=== PATIENT | female | born 1970 | race Caucasian/White ===

== ENCOUNTER 2017-07-19 16:31 | Emergency (ER) | payer BC, OTHER ==
[2017-07-19 16:37] VITALS: BP 153/77; PULSE 69; RESP 18; TEMP 97.7
--- NOTE | 2017-07-19 17:08 | XR ---
EXAMINATION TYPE: XR elbow complete LT DATE OF EXAM: 07/19/2017 CLINICAL HISTORY: pain TECHNIQUE: Frontal, lateral and oblique images of the left elbow are obtained. COMPARISON: None. FINDINGS: Irregularity of the radial head suggested on one image. Prominent anterior and posterior fa t pads. IMPRESSION: Suspected nondisplaced fracture radial head. Correlate clinically. ICD 10 closed FRACTURE, INITIAL EVALUATION
--- NOTE | 2017-07-19 17:26 | ED ---
Upper Extremity HPI - General Chief Complaint: Extremity Injury, Upper Stated Complaint: Fell/arm injury Time Seen by Provider: 07/19/17 16:39 Source: patient Mode of arrival: ambulatory Limitations: no limitations - History of Present Illness Initial Comments: This is a 46-year-old female who presents to the emergency department for left elbow pain. She fell out of her chair and landed on her left hand. She states initially she had pain in her wrist but then noticed that it was actually in her elbow. She states it's worse with supination and pronation of her hand. She denies any numbness, [place], or weakness. No other injuries noted. - Related Data Home Medications Medication Instructions Recorded Confirmed Cholecalciferol [Vitamin D3] 1,000 unit PO HS 07/19/17 07/19/17 Minocycline HCl 100 mg PO DAILY 07/19/17 07/19/17 Vit C/E/Zn/Coppr/Lutein/Zeaxan 1 cap PO DAILY 07/19/17 07/19/17 [Preservision Areds 2 Softgel] Previous Rx's Medication Instructions Recorded HYDROcodone/APAP 5-325MG [[place] 1 tab PO Q4HR PRN #15 tab 07/19/17 5-325] Allergies Allergy/AdvReac Type Severity Reaction Status Date / Time No Known Allergies Allergy Verified 07/19/17 16:41 Review of Systems ROS Statement: Those systems with pertinent positive or pertinent negative responses have been documented in the HPI. ROS Other: All systems not noted in ROS Statement are negative. Past Medical History Past Medical History: Hyperlipidemia History of Any Multi-Drug Resistant Organisms: None Reported Past Surgical History: Section, Cholecystectomy Past Psychological History: No Psychological Hx Reported Smoking Status: Never smoker Past Alcohol Use History: None Reported Past Drug Use History: None Reported General Exam - General Exam Comments Initial Comments: Constitutional: Awake alert Appears comfortable Head: Normocephalic atraumatic Eyes: no conjunctival injection No scleral icterus EOMI Neck: No JVD Supple Heart: Regular rate rhythm normal S1-S2 no murmurs Lungs: Clear to auscultation bilaterally No wheezing No rales Abdomen: Soft nondistended nontender Extremities: Non edematous DP pulses intact Radial pulses intact, there is mild tenderness to palpation of the lateral aspect of the left elbow. She has full range motion of the left elbow. Neurovascularly intact distally. Neuro: A&Ox3 No focal neurologic deficits Psych: Appropriate mood and affect Limitations: no limitations Course Vital Signs 07/19/17 16:34 Temperature 97.7 F Pulse Rate 69 Respiratory 18 Rate Blood Pressure 153/77 O2 Sat by Pulse 100 Oximetry Procedures - Orthopedic Splinting/Casting Injury #1 Side: left Upper Extremity Injury Location: elbow Upper Extremity Immobilizer: sling/shoulder immobilizer, posterior splint Medical Decision Making - Medical Decision Making Is a 46-year-old female presents emergency department for left elbow pain. X- ray confirmed a proximal radial head fracture. Patient was immobilized with a posterior splint and given a sling. She was given Dr. Palm for orthopedic follow-up and also [place] that she can use as needed for pain. Patient was instructed to follow-up with Dr. Palm. She had any worsening or changing symptoms she can return. Disposition Clinical Impression: Radial head fracture Disposition: HOME SELF-CARE Condition: Stable Instructions: Elbow Fracture in Adults (ED) Prescriptions: HYDROcodone/APAP 5-325MG [[place] 5-325] 1 tab PO Q4HR PRN #15 tab PRN Reason: Pain Referrals: Jim Pedro MD [Primary Care Provider] - 1-2 days Greg Palm MD [STAFF PHYSICIAN] - 1-2 days
--- NOTE | 2017-07-21 05:58 | CDI ---
Documentation Clarification OP Dear Dr. Romulo Villalta Please do addendum to ED report for missing type of splint Thank you, Libra Nguyễn Pastry Cook If you have any questions, please contact [employer]ating [employer]er at [phone] [facility]
== END 2017-07-19 17:30 | disposition home or self-care (01) ==
LOC: EC 16:31
DX: S52.122A Displaced fracture of head of left radius, initial encounter for closed fracture (principal); W07.XXXA Fall from chair, initial encounter; Z79.899 Other long term (current) drug therapy
CPT/HCPCS: 29105; 99283

== ENCOUNTER → 2017-09-27 | Outpatient (CLI) | payer BC ==
--- NOTE | 2017-09-28 07:15 | US ---
EXAMINATION TYPE: US transvaginal DATE OF EXAM: 09/27/2017 COMPARISON: NONE CLINICAL HISTORY: Menorragia N92.1. Irregular cycles, 1 , h/o ovarian cysts TECHNIQUE: TV Date of LMP: 08/23/17 EXAM MEASUREMENTS: Uterus: 7.4 x 5.4 x 4.9 cm Endometrial Stripe: 0.4 cm Right Ovary: 2.9 x 2.4 x 2.4 cm Left Ovary: 2.0 x 1.8 x 1.5 cm 1. Uterus: Retroverted nabothian cysts seen 2. Endometrium: wnl 3. Right Ovary: multiple follicles seen, largest = 1.1cm, some follicles had internal debris or shira d components to them 4. Left Ovary: follicle seen measuring 1.3cm 5. Bilateral Adnexa: wnl 6. Posterior cul-de-sac: wnl IMPRESSION: Multiple crenulated appearing bilateral ovarian follicles and may represent involuting cy sts. Otherwise unremarkable pelvic ultrasound with normal endometrial thickness.
== END | disposition home or self-care (01) ==
LOC: RADUSWWP 16:51
PROVIDERS: ATTEND Obstetrics & Gynecology
DX: N92.1 Excessive and frequent menstruation with irregular cycle (principal)
CPT/HCPCS: 76830

== ENCOUNTER → 2017-10-11 | Outpatient (CLI) | payer BC ==
--- NOTE | 2017-10-11 11:29 | MM ---
Reason for exam: screening (asymptomatic). Last mammogram was performed 1 year ago. History: Benign left breast aspiration of the left breast, April 12, 2012. Took hormonal contraceptives for 9 years beginning at age 17. Physical Findings: A clinical breast exam by your physician is recommended on an annual basis and results should be correlated with mammographic findings. MG Screening Mammo w CAD Bilateral CC and MLO view(s) were taken. XCCL view(s) were taken of the left breast. Prior study comparison: October 10, 2016, bilateral MG screening mammo w CAD. October 07, 2015, bilateral MG screening mammo implant/CAD. The breast tissue is heterogeneously dense. This may lower the sensitivity of mammography. There is no discrete abnormality. ASSESSMENT: Negative, BI-RAD 1 RECOMMENDATION: Routine screening mammogram of both breasts in 1 year.
== END | disposition home or self-care (01) ==
LOC: RADMAMWWP 09:42
PROVIDERS: ATTEND Obstetrics & Gynecology
DX: Z12.31 Encounter for screening mammogram for malignant neoplasm of breast (principal)

== ENCOUNTER → 2018-10-15 | Outpatient (CLI) | payer BC ==
--- NOTE | 2018-10-16 11:57 | MM ---
Reason for exam: screening (asymptomatic). Last mammogram was performed 1 year ago. History: Benign left breast aspiration of the left breast, April 12, 2012. Took hormonal contraceptives for 9 years beginning at age 17. Physical Findings: A clinical breast exam by your physician is recommended on an annual basis and results should be correlated with mammographic findings. MG Screening Mammo w CAD Bilateral CC and MLO view(s) were taken. Prior study comparison: October 11, 2017, bilateral MG screening mammo w CAD. October 10, 2016, bilateral MG screening mammo w CAD. The breast tissue is heterogeneously dense. This may lower the sensitivity of mammography. Focal asymmetry upper outer right breast anterior third position. This finding is changed when compared with previous exams. ASSESSMENT: Incomplete: need additional imaging evaluation, BI-RAD 0 RECOMMENDATION: Special view mammogram of the right breast. If lesion persists on supplemental views, image directed ultrasound is recommended. [facility] will attempt to contact patient to return for supplemental views and ultrasound if indicated.
== END | disposition home or self-care (01) ==
LOC: RADMAMWWP 07:26
PROVIDERS: ATTEND Obstetrics & Gynecology
DX: Z12.31 Encounter for screening mammogram for malignant neoplasm of breast (principal)
CPT/HCPCS: 77067

== ENCOUNTER → 2018-11-01 | Outpatient (CLI) | payer BC ==
--- NOTE | 2018-11-01 14:01 | MM ---
Reason for exam: additional evaluation requested from abnormal screening. Last mammogram was performed 1 month ago. History: Benign left breast aspiration of the left breast, April 12, 2012. Took hormonal contraceptives for 9 years beginning at age 17. Physical Findings: Nurse Summary: 1 x 1cm nodule in the right breast at 11 o'clock (nurse ts). MG Work Up Mamm w CAD RT Spot compression CC, spot compression MLO, and ML view(s) were taken of the right breast. Prior study comparison: October 15, 2018, bilateral MG screening mammo w CAD. October 11, 2017, bilateral MG screening mammo w CAD. There is no discrete abnormality including area of concern. These results were verbally communicated with the patient and result sheet given to the patient on 11/01/18. ASSESSMENT: Incomplete: need additional imaging evaluation, BI-RAD 0 RECOMMENDATION: Ultrasound of the right breast. (palpable) Manage patient on a clinical basis.
--- NOTE | 2018-11-01 14:02 | USB ---
Reason for exam: additional evaluation requested from abnormal screening. History: Benign left breast aspiration of the left breast, April 12, 2012. Took hormonal contraceptives for 9 years beginning at age 17. US Breast Workup Limited RT Right limited breast ultrasound including focal area of concern, retroareolar and axilla demonstrates a 0.3 x 0.2 x 0.4cm lesion too small to characterize at 10 o'clock and a 0.5 x 0.2 x 0.4cm lesion too small to characterize at 11 o'clock. These results were verbally communicated with the patient and result sheet given to the patient on 11/01/18. ASSESSMENT: Probably benign, BI-RAD 3 RECOMMENDATION: Ultrasound of the right breast in 6 months. Manage patient on a clinical basis.
== END | disposition home or self-care (01) ==
LOC: RADMAMWWP 07:01
PROVIDERS: ATTEND Obstetrics & Gynecology
DX: R92.8 Other abnormal and inconclusive findings on diagnostic imaging of breast (principal)
CPT/HCPCS: 77065

== ENCOUNTER → 2019-05-03 | Outpatient (CLI) | payer BC ==
--- NOTE | 2019-05-06 12:07 | USB ---
Reason for exam: clinical finding. History: Benign left breast aspiration of the left breast, April 12, 2012. Took hormonal contraceptives for 9 years beginning at age 17. Indicated problem(s): palpable abnormality and lump or thickening in the right breast. Physical Findings: Nurse Summary: 1.5cm firm nodule (nurse dw). US Breast RT Right complete breast ultrasound includes all four quadrants, the retroareolar region and axilla. Finding demonstrates a 0.7 x 1.2 x 1.3cm irregular, solid, vascular lesion at 11 o'clock. These results were verbally communicated with the patient and result sheet given to the patient on 05/03/19. ASSESSMENT: Highly suggestive of malignancy, BI-RAD 5 RECOMMENDATION: Ultrasound core biopsy of the right breast. Called Dr. Velez with mammographic findings and has scheduled an appointment for the patient for 06/06/19 at 11:[address] Reaves. Biopsy scheduled for 05/27/19 at 8:00. PRELIMINARY REPORT CALLED AND FAXED TO DR. REAVES ON 05/06/19.
== END | disposition home or self-care (01) ==
LOC: RADUSWWP 06:53
PROVIDERS: ATTEND Obstetrics & Gynecology
DX: R92.8 Other abnormal and inconclusive findings on diagnostic imaging of breast (principal)

== ENCOUNTER → 2019-05-23 | Day surgery (SDC) | payer BC ==
[2019-05-23 11:50] VITALS: TEMP 98; BMI 29.7
--- NOTE | 2019-05-23 13:21 | USB ---
EXAMINATION TYPE: US biopsy breast VAD RT, MG diagnostic mammo RT wo CAD DATE OF EXAM: 05/23/2019 CLINICAL HISTORY: R92.8 ABN MAMMO. TECHNIQUE: Ultrasound guided core biopsy of right breast. COMPARISON: Right breast ultrasound dated 05/03/2019 FINDINGS: The procedure of ultrasound guided core biopsy was explained to the patient. Benefits, alt ernatives, and risks were discussed. An informed consent was then obtained. Preprocedural timeout w as performed. The patient was placed in supine positioning for imaging and for the procedure. The overlying skin w as prepped and draped in usual sterile fashion. Lidocaine buffered with bicarbonate was used as anes thetic into the skin and subcutaneous tissue up to the highly suspicious 0.7 x 1.2 x 1.3 cm irregular mass within the right breast at the 11:00 position in zone BC. Under ultrasound guidance, a 12-gauge vacuum assisted biopsy gun device was used to obtain 9 core jenae ples on various aspect of this mass. Following this, a coil-shaped biopsy marker was left in mass. Postprocedural mammogram demonstrates appropriate biopsy marker placement. The patient tolerated the procedure well without any immediate complication. The patient was kept in the radiology department for short stay after the procedure and then discharged home in stable condi tion. IMPRESSION: Successful, uncomplicated ultrasound guided core biopsy of the highly suspicious 0.7 x 1. 2 x 1.3 cm irregular mass within the right breast at the 11:00 position in zone BC, full pathology re sults to follow.
[2019-05-23 14:44] VITALS: BP 107/69; PULSE 73; RESP 16
== END ==
LOC: RADUSWWP 11:14
PROVIDERS: ATTEND Surgery
DX: C50.411 Malignant neoplasm of upper-outer quadrant of right female breast (principal)
CPT/HCPCS: 19083; 88305; 77065; A4648; J2001; 88341; 88342

== ENCOUNTER 2019-07-17 07:28 | Day surgery (SDC) | payer BC ==
[2019-07-05 13:23] VITALS: BMI 27.8
--- NOTE | 2019-07-16 19:36 | P.GSHP ---
History of Present Illness H&P Date: 07/16/19 Chief Complaint: Right breast cancer 48-year-old female underwent recent right breast 6 month follow-up ultrasound. Recently identified lesion increased in size now to 1.3 cm. Patient has no family history of breast cancer. She is otherwise asymptomatic. Core Biopsy Obtained Which Reveals Invasive Ductal Carcinoma. Follow-Up to Be At Least Moderately Differentiated. ER CT Positive HER-2/esvin Negative. Patient Was Sent for Genetic Screening and Genetic Screening have Been Negative. Past Medical History Past Medical History: Hyperlipidemia, Skin Disorder History of Any Multi-Drug Resistant Organisms: None Reported Past Surgical History: Section, Cholecystectomy Past Anesthesia/Blood Transfusion Reactions: No Reported Reaction Smoking Status: Never smoker - Past Family History Father Family Medical History: Cancer, Hyperlipidemia, Hypertension Medications and Allergies Home Medications Medication Instructions Recorded Confirmed Type Cholecalciferol [Vitamin D3] 7,000 unit PO DAILY 07/19/17 07/05/19 History Minocycline HCl [Minocin] 100 mg PO DAILY PRN 07/19/17 07/05/19 History Vit C/E/Zn/Coppr/Lutein/Zeaxan 1 cap PO DAILY 07/19/17 07/05/19 History [Preservision Areds 2 Softgel] Allergies Allergy/AdvReac Type Severity Reaction Status Date / Time shellfish derived [Shellfish] Allergy Itching Verified 07/05/19 13:17 Surgical - Exam Physical exam: General: Well-developed, well-nourished HEENT: Normocephalic, sclerae nonicteric Left breast: No masses, no adenopathy Right breast: No masses, no adenopathy, recent scar noted Abdomen: Nontender, nondistended Extremities: No edema Neuro: Alert and oriented Assessment and Plan (1) Breast cancer, right Narrative/Plan: 48-year-old female with recently diagnosed right breast invasive ductal cancer. Options reviewed in detail with the patient. She is interested in breast conservation. Patient scheduled for right breast lumpectomy with wire localization, sentinel lymph node biopsy/injection with possible axillary node dissection tomorrow. Risks of bleeding, infection, possible need for additional surgery, scarring, numbness, chronic pain, seroma, nerve injury reviewed. She understands and wishes to proceed. Status: Acute Code(s): C50.911 - MALIGNANT NEOPLASM OF UNSP SITE OF RIGHT FEMALE BREAST SNOMED Code(s): 964287459
[~2019-07-17 07:28] MED LIST: DEXAMETHASONE SOD PHOSPHATE 10 MG/ML 1 ML VIAL IV ONE; HEPARIN SODIUM,PORCINE 5,000 UNIT/ML 1 ML VIAL SQ ONE; HYDROmorphone 0.5 MG/0.5 ML SYRINGE IVP PRN; LACTATED RINGERS 1,000 ML IV SCH; MIDAZOLAM 2 MG/2 ML VIAL IV PRN; ONDANSETRON 4 MG/2 ML VIAL IVP ONE; Pre Op ABX Message 1 EACH MISC MISCELLANE ONE; SCOPOLAMINE 1.5MG/72HR PATCH TRANSDERM ONE
[2019-07-17] MEDS ORDERED: ALPRAZolam 0.5 MG TAB PO ONE (07:55)
[2019-07-17] MEDS ORDERED: LIDOCAINE 1% INJ 10MG/ML (20 ML MDV) SQ ONE (08:52)
[2019-07-17] MEDS ORDERED: SUCCINYLCHOLINE CHLORIDE 100 MG/5 ML SYR IV ONE (09:41)
[2019-07-17] MEDS ORDERED: DEXAMETHASONE SOD PHOS (MDV) 100 MG/10 ML VIAL ONE (09:41)
[2019-07-17] MEDS ORDERED: LIDOCAINE 1% INJ 10MG/ML (20 ML MDV) ONE (09:41)
[2019-07-17] MEDS ORDERED: MIDAZOLAM 2 MG/2 ML VIAL ONE (09:41)
[2019-07-17] MEDS ORDERED: ceFAZolin 1,000 MG VIAL ONE (09:41)
[2019-07-17] MEDS ORDERED: KETOROLAC 30 MG/ML 1 ML VIAL ONE (09:41)
[2019-07-17] MEDS ORDERED: ONDANSETRON 4 MG/2 ML VIAL ONE (09:41)
[2019-07-17] MEDS ORDERED: HEPARIN SODIUM,PORCINE 5,000 UNIT/ML 1 ML VIAL ONE (09:41)
[2019-07-17] MEDS ORDERED: fentaNYL (PF) 50 MCG/ML 2 ML AMP ONE (09:41)
[2019-07-17] MEDS ORDERED: PROPOFOL 10 MG/ML 20 ML VIAL IV ONE (09:41)
[2019-07-17] MEDS ORDERED: HYDROmorphone (PF) 1 MG/ML ONE (09:41)
--- NOTE | 2019-07-17 09:55 | NM ---
EXAMINATION TYPE: NM sentinel node injection DATE OF EXAM: 07/17/2019 COMPARISON: 05/23/2019 right breast biopsy HISTORY: Right breast cancer with request for sentinel lymph node injection. TECHNIQUE AND FINDINGS: The procedure of sentinel lymph node injection was explained to the patient. The benefits, alternatives, and risks were discussed. An informed consent was then obtained. Overlying skin is cleaned with sterile alcohol. Following this, 522 uCi Tc99m Tilmanocept was inject ed in the upper outer aspect of the right nipple intradermally. The patient tolerated the procedure well without any immediate complication. The patient was kept in the radiology department for short stay after the procedure and then taken to surgery for surgical p rocedure what is presumed intraoperative gamma probe will be used for sentinel lymph node detection. IMPRESSION: Right breast radiotracer injection for sentinel node localization as above.
[2019-07-17] MEDS ORDERED: BUPIVACAIN-EPI 0.25%-1:200,000 30 ML VIAL SQ ONE ×2 (10:06)
[2019-07-17] MEDS ORDERED: SODIUM CHLORIDE 0.9% 100 ML with ceFAZolin 2,000 MG IV ONE ×2 (10:11)
[2019-07-17] MEDS ORDERED: LACTATED RINGERS 1,000 ML IV ONE ×2 (10:33)
[2019-07-17] MEDS ORDERED: HYDROcodone/APAP 5-325MG 1 EACH TAB PO PRN (11:27)
[2019-07-17] MEDS ORDERED: NALOXONE 0.4 MG/ML 1 ML VIAL IV PRN (11:27)
--- NOTE | 2019-07-17 11:29 | MM ---
EXAMINATION TYPE: MG pre op needle loc RT, MG surgical specimen RT DATE OF EXAM: 07/17/2019 COMPARISON: Right breast biopsy dated 05/23/2019 CLINICAL HISTORY: Right breast cancer for which mammographic guided needle localization was requested. TECHNIQUE: Needle localization with wire placement and surgical excision of area of concern in the right breast. FINDINGS: The procedure of needle localization with wire placement and than surgical excision was explained to the patient. Benefits, alternatives, and risks were discussed. An informed consent was then obtained. Preprocedural timeout was performed. The shortest pathway for procedure was chosen. Shortest pathway was lateral to medial approach. The overlying skin was prepped and draped in usual sterile fashion. Lidocaine buffered with bicarbonate was used as anesthetic into the skin and subcutaneous tissue up to the level of area of concern. A 5 cm needle was used. It was placed via a lateral to medial approach under mammographic guidance. Subsequent 90 degrees mammogram show the needle to be in satisfactory position relative to the targeted area. At this point, wire was placed and the needle was withdrawn. The wire was fixed to patient's skin. Images were marked for surgeon. The patient tolerated the procedure well without any immediate complication. The patient was kept in the radiology department for short stay after the procedure and then taken to surgery for surgical excision. Targeted biopsy marker and wire are identified in specimen mammogram. The patient was kept in hospital for short stay after the procedure and then discharged home in stable condition. Findings were relayed to the OR by the traffic safety administrator Kiana at 11:27 AM on 07/17/2019. IMPRESSION: Successful, uncomplicated needle localization with wire placement and surgical excision of a coil-shaped biopsy marker representing the biopsy- proven invasive ductal carcinoma measuring 1.2 cm at the 11:00 position in the right breast, full pathology results to follow. Pathology Results: Malignant A. RIGHT SENTINEL LYMPH NODE #1, BIOPSY: Benign lymph node, partial fatty replacement. An appropriately controlled immunohistochemical study for LEEANNA and Cytokeratin 7 is negative, thus confirming the absence of micrometastatic adenocarcinoma within these nodes. B. RIGHT AXILLARY SENTINEL LYMPH NODE #2, BIOPSY: Nodular adipose tissue, negative for lymphoid tissue or metastatic adenocarcinoma. C. RIGHT AXILLARY SENTINEL LYMPH NODE #3, BIOPSY: Fibroadipose and vascular tissue, negative for lymph node or metastatic adenocarcinoma. D. RIGHT BREAST LESION AT THE ELEVEN O'CLOCK POSITION IN ZONE B/C, NEEDLE LOCALIZATION BIOPSY: 14 x 13 x 7 mm infiltrating, moderately differentiated (grade 2) adenocarcinoma greater than 2 mm away from inked margins of resection. 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 See Surgical Pathology Cancer Case Summary. Recommendation Appropriate oncologic management. MTDD
--- NOTE | 2019-07-17 11:31 | P.OP ---
Date of Procedure: 07/17/19 Procedure(s) Performed: REOPERATIVE DIAGNOSIS: Right breast cancer POSTOPERATIVE DIAGNOSIS: Same PROCEDURE: Right Breast wire localization lumpectomy with sentinel lymph node biopsy SURGEON: Jean Paul EBL: Minimal ANESTHESIA: General COMPLICATIONS: None OPERATIVE PROCEDURE: Patient was placed on the operating room table in the supine position. 2 mL of methylene blue was injected into the subareolar space. The breast was then massaged for 5 minutes. The breast was prepped and draped in usual sterile fashion. The right axilla was addressed at that time. The hot spot in the right axilla was identified. A small curvilinear incision was made using the scalpel. Dissection down through the subcutaneous tissues took place using electrocautery. Using the neoprobe I identified a total of 3 sentinel lymph nodes. The first of these was blue in color. The second sentinel lymph node appeared to be quite small. The third sentinel lymph node had radioactive material but I was not able to identify a definite node. None of these appeared clinically suspicious. No frozen section took place. The operative site was irrigated with saline. No bleeding was seen. The subcutaneous tissues were closed using 3-0 Vicryl sutures. The skin was closed using 4-0 Monocryl sutures. The wire entrance site was then addressed. This was present at the 9:00 location. A curvilinear incision was made adjacent to the wire entrance site. I followed the wire down into the breast tissue. An adequate lumpectomy specimen then took place around the wire. Margins of 1.5-2 cm worth attempted to be achieved. Palpation of the specimen did not reveal any suspicious nodularity. No additional margins were taken. The specimen was then painted the appropriate 6 colors. Clips were used to identify the lumpectomy cavity. The clip was confirmed to be within the lumpectomy specimen by radiology. The subcutaneous tissues were closed using 3-0 Vicryl sutures. The skin was closed using a running 4-0 Monocryl stitch. Skin glue was then applied. DISPOSITION: Stable to recovery room
[2019-07-17 11:47] VITALS: TEMP 97.2
[2019-07-17 12:33] VITALS: RESP 18
[2019-07-17] MEDS ORDERED: HYDROcodone/APAP 5-325MG 1 EACH TAB PO ONE (12:38)
[2019-07-17 13:06] VITALS: BP 131/86; PULSE 77
--- NOTE | 2019-07-23 07:57 | CDI ---
Pt Name: Julia Howard CONFIDENTIAL MR#: [id number] Adm Date: 07/17/2019 7:28:00 AM Printed:07/23/2019 Physician Documentation Request Page 1 of 2 ICD-10-CM Ready Physicians Documentation Request Patient: Julia Howard EPI: [id number] Account: [id number] Payer: [facility] Facility: [facility] Location: - Admit Date: 07/17/2019 7:28:00 AM Query Send By: Angela Bauer Phone #: Ext. Communication Date: Clarification @@@visittype@@@ By submitting this query, we are merely seeking further clarification of documentation to accurately reflect all conditions that you are monitoring, evaluating, treating or that extend the hospitalization or utilize additional resources of care. Please utilize your independent clinical judgment when addressing the question(s) below. Dear Doctor Perico Reaves, The patients Clinical Indicators include: see below Documentation Clarification OP As per your Operative note documentation Right Breast wire localization lumpectomy with sentinel lymphnode biopsy. Please clarify the location of lump. Since in the pathology report it was specified as Eleven O'Clock position but not stated the quadrent specifically. 1. Tumor at Upper -outer quadrant 2. Unspecied site Thank you for your kind consideration. PLEASE DOCUMENT ANY ADDITIONAL DIAGNOSES AND/OR SPECIFICITY IN THE PROGRESS NOTES AND/OR DISCHARGE SUMMARY. Agreed & documented Unable to determine/unknown Disagree with the above request Need to discuss MTDD
== END 2019-07-17 13:49 | disposition home or self-care (01) ==
LOC: OR 07:28
PROVIDERS: ATTEND Surgery
DX: C50.411 Malignant neoplasm of upper-outer quadrant of right female breast (principal); E78.5 Hyperlipidemia, unspecified; Z91.013 Allergy to seafood; Z90.49 Acquired absence of other specified parts of digestive tract; Z87.2 Personal history of diseases of the skin and subcutaneous tissue; Z82.49 Family history of ischemic heart disease and other diseases of the circulatory system; Z80.9 Family history of malignant neoplasm, unspecified; Z83.438 Family history of other disorder of lipoprotein metabolism and other lipidemia; Z17.0 Estrogen receptor positive status [ER+]
CPT/HCPCS: 19301; 38500; 81025; 88342; 88307; 88341; 76098; 19281; 38792; A9520; J2250; J1644; J2405; J0690; J2001; J3010; J1885; J1170; J1100; J0330; J2704

== ENCOUNTER → 2019-10-23 | Outpatient (CLI) | payer BC ==
--- NOTE | 2019-10-23 09:11 | MM ---
Reason for exam: follow-up at short interval from prior study. Last mammogram was performed 5 months ago. History: Patient has history of breast cancer at age 48. Malignant MG pre op needle loc RT of the right breast, July 17, 2019. Lumpectomy of the right breast, July 17, 2019. Malignant US biopsy breast VAD RT of the right breast, May 23, 2019. Benign left breast aspiration of the left breast, April 12, 2012. Took hormonal contraceptives for 9 years beginning at age 17. Physical Findings: Nurse did not find any significant physical abnormalities on exam. MG 3D Diag Mammo W/Cad ANNEL Bilateral CC and MLO view(s) were taken. Prior study comparison: May 23, 2019, right breast MG diagnostic mammo RT wo CAD. November 01, 2018, right breast MG work up mamm w CAD RT. The breast tissue is heterogeneously dense. This may lower the sensitivity of mammography. There are scattered left calcifications. No suspicious abnormality. Post operative/post therapy change on the right. These results were verbally communicated with the patient and result sheet given to the patient on 10/23/19. ASSESSMENT: Benign, BI-RAD 2 RECOMMENDATION: Follow-up diagnostic mammogram of both breasts in 1 year.
== END | disposition home or self-care (01) ==
LOC: RADMAMWWP 07:05
PROVIDERS: ATTEND Surgery
DX: R92.8 Other abnormal and inconclusive findings on diagnostic imaging of breast (principal); Z85.3 Personal history of malignant neoplasm of breast
CPT/HCPCS: 77062; 77066

== ENCOUNTER → 2020-09-09 | Outpatient (CLI) | payer BC, OTHER ==
--- NOTE | 2020-09-09 14:51 | BD ---
EXAMINATION TYPE: Axial Bone Density DATE OF EXAM: 09/09/2020 COMPARISON: NONE CLINICAL HISTORY: Height: 63.5 Weight: 158.2 FRAX RISK QUESTIONS: Alcohol (3 or more units per day): no Family History (Parent hip fracture): no Glucocorticoids (More than 3mos): no (Ex: prednisone, prednisolone, methylprednisolone, dexamethasone, and hydrocortisone). History of Fracture in Adulthood: yes Secondary Osteoporosis: 1. Type 1 Diabetes: no 2. Hyperthyroidism: no 3. Menopause before 45: no 4. Malnutrition: no 5. Chronic liver disease: no Rheumatoid Arthritis: no Current Tobacco Use: no RISK FACTORS HISTORY OF: Family History of Osteoporosis: yes Active: yes Diet low in dairy products/other sources of calcium: no Postmenopausal woman: age 49 Lost more than 2 inches in height since high school: no MEDICATIONS: pepcid, tomoxifin Additional History: EXAM MEASUREMENTS: Bone mineral densitometry was performed using the Future Simple System. Bone mineral density as measured about the Lumbar spine is: ----- L1-L4(G/cm2): 1.532 T Score Values are as follows: ----- L2: 2.2 ----- L3: 4.0 ----- L4: 3.7 ----- L1-L4: 2.9 Bone mineral density : baseline Bone mineral density about the R hip (g/cm2): 1.045 Bone mineral density about the L hip (g/cm2): 1.056 T Score values are as follows: -----R Neck: 0.0 -----L Neck: 0.1 -----R Total: 0.6 -----L Total: 0.8 Bone mineral density : baseline IMPRESSION: Normal (Values between +1 and -1 indicate normal bone mass). Consider repeating this study in 5 year s or sooner if there is some new clinical indication. NOTE: T-SCORE=SD OF THE YOUNG ADULT MEAN.
== END | disposition home or self-care (01) ==
LOC: RADBDWWP 13:58
PROVIDERS: ATTEND Obstetrics & Gynecology
DX: N95.1 Menopausal and female climacteric states (principal)
CPT/HCPCS: 77080

== ENCOUNTER → 2020-12-01 | Outpatient (CLI) | payer BC, OTHER ==
--- NOTE | 2020-12-01 09:26 | MM ---
Reason for exam: additional evaluation requested from prior study. Last mammogram was performed 1 year and 1 month ago. History: Patient has history of breast cancer at age 48. Malignant MG pre op needle loc RT of the right breast, July 17, 2019. Lumpectomy of the right breast, July 17, 2019. Malignant US biopsy breast VAD RT of the right breast, May 23, 2019. Benign left breast aspiration of the left breast, April 12, 2012. Took hormonal contraceptives for 9 years beginning at age 17. Physical Findings: Nurse did not find any significant physical abnormalities on exam. MG 3D Diag Mammo W/Cad ANNEL Bilateral CC and MLO view(s) were taken. XCCL view(s) were taken of the right breast. Prior study comparison: October 23, 2019, bilateral MG 3d diag mammo w/cad ANNEL. May 23, 2019, right breast MG diagnostic mammo RT wo CAD. The breast tissue is heterogeneously dense. This may lower the sensitivity of mammography. No significant new findings when compared with previous films. These results were verbally communicated with the patient and result sheet given to the patient on 12/01/20. ASSESSMENT: Benign, BI-RAD 2 RECOMMENDATION: Follow-up diagnostic mammogram of both breasts in 1 year.
--- NOTE | 2020-12-01 12:29 | US ---
EXAMINATION TYPE: US transvaginal DATE OF EXAM: 12/01/2020 COMPARISON: US 2017 CLINICAL HISTORY: Z79.810 USE OF TAMOXIFEN. Patient on tamoxifen, 1, para 1, history of breas t CA, history of . TECHNIQUE: Transvaginal exam only per ordering physician. Date of LMP: 2019 EXAM MEASUREMENTS: Uterus: 7.7 x 3.7 x 5.2 cm Endometrial Stripe: 0.7 cm Right Ovary: not seen Left Ovary: 4.7 x 3.4 x 4.3 cm 1. Uterus: retroverted, heterogeneous 2. Endometrium: Not thickened, some focal areas of increased echogenicity are present 3. Right Ovary: not seen 4. Left Ovary: 2 cystic area with largest measuring 3.3 x 2.5 x 2.8cm, there are thin septations 5. Bilateral Adnexa: wnl 6. Posterior cul-de-sac: small amount of free fluid IMPRESSION: There may be some calcifications along the endometrium. There is a left ovarian cyst, florence e associated septations with increase in size as compared to prior ultrasound
== END | disposition home or self-care (01) ==
LOC: RADMAMWWP 07:30
PROVIDERS: ATTEND Obstetrics & Gynecology
DX: Z85.3 Personal history of malignant neoplasm of breast (principal); Z79.810 Long term (current) use of selective estrogen receptor modulators (SERMs); N83.202 Unspecified ovarian cyst, left side
CPT/HCPCS: 76830; 77062; 77066

== ENCOUNTER → 2020-12-15 | Outpatient (CLI) | payer BC, OTHER | END | disposition home or self-care (01) | LOC: LABWHC1 07:34 | PROVIDERS: ATTEND Obstetrics & Gynecology | DX: N83.209 Unspecified ovarian cyst, unspecified side (principal) | CPT/HCPCS: 36415; 86304 ==

== ENCOUNTER → 2021-01-11 | Outpatient (CLI) | payer BC, OTHER ==
--- NOTE | 2021-01-11 08:59 | US ---
EXAMINATION TYPE: US transvaginal DATE OF EXAM: 01/11/2021 COMPARISON: 12/01/2020 CLINICAL HISTORY: 50-year-old female N83.0 Left ovarian cyst, N83.209. TECHNIQUE: Transvaginal (TV). Date of LMP: November 2019 FINDINGS: EXAM MEASUREMENTS: Uterus: 9.0 x 5.7 x 6.5 cm Endometrial Stripe: 0.8 cm Right Ovary: 4.4 x 2.8 x 3.6 cm Left Ovary: 2.5 x 1.3 x 1.4 cm 1. Uterus: Anteverted. The myometrium is heterogeneous with a primarily intramural anterior fibroi d = 2.5cm. Nabothian cysts noted, largest has internal echoes measuring 1.1 x 1.4cm 2. Endometrium: echogenic foci noted. Measures 7 mm previously. 3. Right Ovary: cystic area = 4.2 x 2.1 x 3.0cm. The right ovary could not be visualized previously. 4. Left Ovary: Now appears unremarkable. The 2 previous cystic areas are no longer visualized, large st having measures 3.3 cm. 5. Bilateral Adnexa: Small amount of free fluid in the right adnexa. 6. Posterior cul-de-sac: appears wnl IMPRESSION: 1. Heterogeneous endometrium with punctate calcifications. This could represent sequela of prior infe ction or instrumentation. Endometrial stripe is borderline thickened for a postmenopausal female. If any postmenopausal bleeding occurs, further evaluation would be warranted. 2. Right ovary now visualized demonstrating a 4.2 cm simple cyst. Six-month follow-up ultrasound idania mmended to reassess. 3. The previous cysts within the left ovary are no longer visualized. The left ovary now appears unre markable. 4. Trace right adnexal free fluid. 5. A primarily intramural fibroid along the lower uterine segment measuring 2.5 cm.
== END ==
LOC: RADUSWWP 07:06
PROVIDERS: ATTEND Obstetrics & Gynecology
DX: N83.201 Unspecified ovarian cyst, right side (principal); D25.1 Intramural leiomyoma of uterus; N85.8 Other specified noninflammatory disorders of uterus; N83.8 Other noninflammatory disorders of ovary, fallopian tube and broad ligament
CPT/HCPCS: 76830; 86304

== ENCOUNTER → 2021-04-13 | Outpatient (CLI) | payer BC, OTHER ==
--- NOTE | 2021-04-13 14:06 | US ---
EXAMINATION TYPE: US transvaginal DATE OF EXAM: 04/13/2021 COMPARISON: us 01/11/2021 CLINICAL HISTORY: N83.20 PREV RT OVARIAN CYST. Patient taking Tamoxifen since 2019 TECHNIQUE Transvaginal sonographic images of the pelvis were acquired. Date of LMP: November 2019 EXAM MEASUREMENTS: Uterus: 7.4 x 5.0 x 4.6 cm Endometrial Stripe: 0.2 cm Right Ovary: 1.4 x 1.0 x 1.3 cm Left Ovary: 1.8 x 1.6 x 1.7 cm 1. Uterus: Retroverted Heterogeneous. Probable fibroid visualized measuring 1.2 x 1.2 x 1.4 cm. Nabo thian cysts visualized 2. Endometrium: wnl 3. Right Ovary: Cystic area measuring 1.0 x 0.5 x 0.9 cm compared to 4.2 x 2.1 x 3.0cm on 01/11/2021 4. Left Ovary: Follicle visualized measuring 1.0 cm 5. Bilateral Adnexa: wnl 6. Posterior cul-de-sac: wnl IMPRESSION: 1. 1 cm cystic structure in the right ovary. This is compared to prior exam of 4.2 cm cystic structur e. 2. 1 cm follicle within the left ovary. 3. Probable Nabothian cyst with probable hemorrhage. Direct cervical evaluation may be helpful.
== END | disposition home or self-care (01) ==
LOC: RADUSWWP 08:03
PROVIDERS: ATTEND Obstetrics & Gynecology
DX: N83.201 Unspecified ovarian cyst, right side (principal); N88.8 Other specified noninflammatory disorders of cervix uteri
CPT/HCPCS: 76830; 86304

== ENCOUNTER → 2022-04-18 | Outpatient (CLI) | payer OTHER, BC ==
--- NOTE | 2022-04-18 12:39 | US ---
EXAMINATION TYPE: US transvaginal DATE OF EXAM: 04/18/2022 COMPARISON: 04/13/2021 CLINICAL HISTORY: 51-year-old female Ovarian cyst N83.0, Z79.810 use of Tamoxifen. H/O ovarian cysts, pt on Tamoxifen since September of 2019 TECHNIQUE: Transvaginal sonographic images of the pelvis were acquired. Date of LMP: Nov 2019 FINDINGS: EXAM MEASUREMENTS: Uterus: 8.0 x 5.0 x 5.7 cm Endometrial Stripe: 1.4 cm Right Ovary: 2.6 x 1.4 x 2.6 cm Left Ovary: 6.8 x 2.8 x 3.7 cm 1. Uterus: Retroverted. The myometrium is heterogeneous with multiple Nabothian cysts in cervix as v isualized on prior. Some of these show internal echoes suggesting debris. Possible fundal fibroid mary suring 1.5 x 0.6 x 1.7 cm (versus 1.4 cm, previously) 2. Endometrium: Borders not well delineated, however tech felt endometrium to be thickened and heter ogeneous 3. Right Ovary: wnl 4. Left Ovary: Cyst= 4.6 x 2.7 x 4.7 cm and second cyst= 3.0 x 2.0 x 2.7 cm 5. Bilateral Adnexa: wnl 6. Posterior cul-de-sac: wnl IMPRESSION: 1. Retroverted and very heterogeneous uterus. The myometrial heterogeneity could reflect diffuse smal l fibroid change or adenomyosis. 2. The endometrial stripe is difficult to delineate. However, during real-time scanning, it appeared heterogeneous and thickened to the logistics team lead, estimated up to 1.4 cm. Findings may be secondary to tamoxifen induced endometrial hyperplasia. Short interval follow-up recommended. If any progressive t hickening is encountered, tissue sampling may be considered. 3. Interval development of 2 large cysts of the left ovary measuring 4.7 cm and 3.0 cm. Follow-up in 6-8 weeks to ensure involution.
== END | disposition home or self-care (01) ==
LOC: RADUSWWP 08:22
PROVIDERS: ATTEND Obstetrics & Gynecology
DX: N88.8 Other specified noninflammatory disorders of cervix uteri (principal)
CPT/HCPCS: 76830

== ENCOUNTER → 2022-05-02 | Outpatient (CLI) | payer OTHER, BC ==
[2022-05-02 10:42] LABS: Basophils # (A) 0.02 X 10*3/uL (0.00-0.10); Basophils % (A) 0.3 %; Eosinophils # (A) 0.26 X 10*3/uL (0.04-0.35); Eosinophils % (A) 3.9 %; HGB 12.6 g/dL (12.0-15.0); Immature Grans, Automated 0.5 %; Lymphocytes # (A) 2.04 X 10*3/uL (0.90-5.00); MCH 28.3 pg (27.0-32.0); MCHC 32.3 g/dL (32.0-37.0); MCV 87.6 fL (80.0-97.0); Mean Platelet Volume 9.6 fL (9.5-12.2); Monocytes # (A) 0.64 X 10*3/uL (0.20-1.00); Monocytes % (A) 9.7 %; NRBC Per 100 WBC 0 /100 WBCS (0.0-0.0); Neutrophils % (A) 54.6 %; Platelet Count 391 X 10*3/uL (140-440); RBC 4.45 X 10*6/uL (4.10-5.20); RDW 13.4 % (11.5-14.5); WBC 6.59 X 10*3/uL (4.50-10.00)
[2022-05-02 11:01] LABS: Estradiol 33.8 pg/mL; Follicle Stimulating Hormone 30.4 mIU/mL
== END | disposition home or self-care (01) ==
LOC: LABPAT 07:32
PROVIDERS: ATTEND Obstetrics & Gynecology
DX: Z01.812 Encounter for preprocedural laboratory examination (principal); Z79.810 Long term (current) use of selective estrogen receptor modulators (SERMs)
CPT/HCPCS: 82670; 83001; 85025; 93005

== ENCOUNTER 2022-05-17 05:43 | Day surgery (SDC) | payer OTHER, BC ==
[2022-05-11 16:12] VITALS: BMI 30.9
--- NOTE | 2022-05-13 07:53 | P.HPOB ---
History of Present Illness H&P Date: 05/13/22 Chief Complaint: Abnormal endometrial thickening on tamoxifen This patient is a pleasant 51-year-old 1 para 1 female who has been having surveillance ultrasounds secondary to tamoxifen use after the diagnosis of breast cancer. Patient's history is such that she was diagnosed with breast cancer in 2019 and initially was on Arimadex. Her oncologist however had checked her hormone levels and felt she was not completely postmenopausal and therefore switched her to Tamoxifen. She had a surveillance ultrasound done previously that showed the endometrium to be normal. However patient had a repeat ultrasound for continued surveillance and found to be abnormal thickening of the lining of 1.4 cm. Patient's had no bleeding or pain. Due to the increased risk of neoplasm on Tamoxifen I recommended she proceed with hysteroscopy and D&C for further evaluation. Past Medical History Past Medical History: Cancer, GERD/Reflux, Hyperlipidemia, Skin Disorder Additional Past Medical History / Comment(s): Rosacea, R breast cancer History of Any Multi-Drug Resistant Organisms: None Reported Past Surgical History: Section, Cholecystectomy Additional Past Surgical History / Comment(s): R breast lumpectomy, bilat cataracts. Past Anesthesia/Blood Transfusion Reactions: No Reported Reaction Past Psychological History: No Psychological Hx Reported Smoking Status: Never smoker Past Alcohol Use History: None Reported Past Drug Use History: None Reported - Past Family History Father Family Medical History: Cancer, Hyperlipidemia, Hypertension Medications and Allergies Home Medications Medication Instructions Recorded Confirmed Type Cholecalciferol [Vitamin D3] 7,000 unit PO DAILY 07/19/17 05/11/22 History Minocycline HCl [Minocin] 100 mg PO DAILY PRN 07/19/17 05/11/22 History Famotidine [Pepcid] 20 mg PO BID 05/11/22 05/11/22 History Tamoxifen [Nolvadex] 20 mg PO DAILY 05/11/22 05/11/22 History Allergies Allergy/AdvReac Type Severity Reaction Status Date / Time shellfish derived [Shellfish] Allergy Itching Verified 05/11/22 15:55 Exam - OBG Physical Exam Abdomen: bowel sounds normal, no diffuse tenderness, no bruit present, no guarding noted, no hepatomegaly, no splenomegaly, no mass Vulva: both: normal Vagina: normal moisture, no discharge Cervix: no lesion, no discharge Uterus: normal size, normal contour Adnexa: both: normal Results Transvaginal ultrasound on April 18 shows a normal size uterus however endometrial thickening of 1.4 cm. The right ovary was normal. She did have 2 simple cysts of the left ovary 4-1/2 and 3 cm. Assessment and Plan Assessment: This is a pleasant 51-year-old 1 para 1 female with endometrial thickening on ultrasound surveillance while on Tamoxifen. Due to the increased risk of endometrial abnormalities on this medication, I recommended patient proceed with hysteroscopy and D&C for further evaluation. Patient I have discussed the surgery and risks and risks of infection, bleeding, possible uterine perforation. All the patient's questions are answered and a written consent is obtained. (1) Endometrial thickening on ultrasound Status: Acute Code(s): R93.89 - ABNORMAL FINDINGS ON DX IMAGING OF OTH BODY STRUCTURES SNOMED Code(s): 660109689 (2) Use of tamoxifen (Nolvadex) Status: Acute Code(s): Z79.810 - LNG TRM (CRNT) USE OF SLCTV ESTROG RECEPTOR MODULATORS SNOMED Code(s): 945974889
[~2022-05-17 05:43] MED LIST changes: -DEXAMETHASONE SOD PHOSPHATE 10 MG/ML 1 ML VIAL IV ONE; +DEXAMETHASONE SOD PHOSPHATE 4 MG/ML 1 ML VIAL IV ONE; -HEPARIN SODIUM,PORCINE 5,000 UNIT/ML 1 ML VIAL SQ ONE; +LIDOCAINE 1% (10MG/ML) FOR IV START INTRADERMA PRN; -SCOPOLAMINE 1.5MG/72HR PATCH TRANSDERM ONE
[2022-05-17] MEDS ORDERED: PROPOFOL 10 MG/ML 20 ML VIAL IV ONE (06:47)
[2022-05-17] MEDS ORDERED: LIDOCAINE 2% INJ 20 MG/ML (2 ML VIAL) ONE (06:47)
[2022-05-17] MEDS ORDERED: fentaNYL (PF) 50 MCG/ML 2 ML AMP ONE (06:47)
[2022-05-17] MEDS ORDERED: MIDAZOLAM 2 MG/2 ML VIAL ONE (06:47)
[2022-05-17] MEDS ORDERED: KETOROLAC 15 MG/ML 1 ML VIAL ONE (06:47)
--- NOTE | 2022-05-17 07:23 | P.OP ---
Date of Procedure: 05/17/22 Preoperative Diagnosis: Abnormal endometrial thickening on tamoxifen Postoperative Diagnosis: Same, probable endometrial polyp Procedure(s) Performed: #1: Hysteroscopy. #2: Dilation and curettage with removal of endometrial polyp Anesthesia: MAC Surgeon: Mario Velez Estimated Blood Loss (ml): 10 Urine output (ml): 20 Pathology: other (Endometrial curettings) Condition: stable Disposition: PACU Indications for Procedure: Please see dictated H&P for intimate details of this patient's admission. Brief summary this pleasant 51-year-old 1 para 1 female with abnormal endometrial thickening on ultrasound surveillance while on tamoxifen therapy. Recommended hysteroscopy D&C for further evaluation. Patient understands this surgery and risks including risks of infection, bleeding, possible uterine perforation. All the patient's questions are answered and a written consent is obtained. Operative Findings: This patient had a proximally 1 cm endometrial polyp that appeared benign. The rest of the endometrium appeared atrophic. Cervix was stenotic. Description of Procedure: This patient is taken to the operating room where she is laid in the supine position. She subsequently undergoes general mask anesthesia without incident. With an adequate level of anesthesia she's placed in dorsal lithotomy position. She has a vaginal perineal prep and drape. Examination under anesthesia shows a mid to retroverted uterus of normal size. Weighted speculum is placed in the posterior vagina. The bladder is drained for 20 mL of clear urine. I take an Allis clamp and grabbed the anterior lip of the cervix. Cervix is stenotic however using a hemostat I open the endocervical canal. Uterus is then sounded to 8.5 cm retroverted. Serial dilation is then done gently to allow the hys teroscope easily and the uterine cavity. Using saline solution, hysteroscopy is performed. There is a proximally 1 cm benign appearing polyp in the endometrium. The rest of the lining appears atrophic. The endocervical canal appears normal. Hysteroscope was then removed. More dilation is done to allow a polyp forceps easily uterine cavity. Multiple passes are done until polyp appears to be completely removed. A gentle but thorough 4 quadrant curettage is then done. All of this tissue sent off to pathology. At this point the procedure is ended. The Allis clamp and weighted speculum were removed. All counts are correct 3. There are no complications. Patient is awakened from anesthesia and taken recovery room satisfactory condition.
[2022-05-17 07:29] VITALS: TEMP 97.4
[2022-05-17 08:38] VITALS: BP 131/71; PULSE 74; RESP 17
== END 2022-05-17 09:03 | disposition home or self-care (01) ==
LOC: OR 05:43
PROVIDERS: ATTEND Obstetrics & Gynecology
DX: N84.0 Polyp of corpus uteri (principal); K21.9 Gastro-esophageal reflux disease without esophagitis; Z79.810 Long term (current) use of selective estrogen receptor modulators (SERMs); Z79.899 Other long term (current) drug therapy; Z91.013 Allergy to seafood; Z80.9 Family history of malignant neoplasm, unspecified; Z82.49 Family history of ischemic heart disease and other diseases of the circulatory system
CPT/HCPCS: 81025; 88305; 58558; J2250; J1100; J2405; J3010; J1885; J2704; J2001

== ENCOUNTER → 2022-06-06 | Outpatient (CLI) | payer OTHER, BC ==
--- NOTE | 2022-06-06 08:23 | US ---
EXAMINATION TYPE: US transvaginal DATE OF EXAM: 06/06/2022 COMPARISON: Multiple US's, most recent dated 04/18/2022 CLINICAL HISTORY: N83.02 FOLLICULAR CYST OF LEFT OVARY. Patient on Tamoxifen. D & C May 2022. TECHNIQUE: Transvaginal (TV). Date of LMP: approximately one year ago. EXAM MEASUREMENTS: Uterus: 8.4 x 4.8 x 6.1 cm Endometrial Stripe: 2.1 cm Right Ovary: 1.9 x 0.9 x 1.5 cm Left Ovary: 3.7 x 1.2 x 2.7 cm 1. Uterus: Anteverted low level lesion in cervix measuring 1.3 x 1.0 x 1.2 cm. This could be a com plex nabothian cyst, short-term follow-up however is recommended. 2. Endometrium: thickened at 2.1 cm 3. Right Ovary: wnl 4. Left Ovary: cyst measures 2.4 x 1.0 x 2.1 cm. Previous larger left ovarian cysts have resolved. 5. Bilateral Adnexa: wnl 6. Posterior cul-de-sac: no free fluid IMPRESSION: 1. There may be a complex nabothian cyst within the cervix. These are fewer than comparison. Follow-u p exam is recommended. 2. Thickened endometrial canal 2.1 cm. Given progression from previous estimate of 1.4 cm, consider t issue sampling. 3. Simple appearing cyst left ovary. Follow-up exam in 6 weeks is recommended. 4. Previous large left ovarian cysts have resolved.
== END | disposition home or self-care (01) ==
LOC: RADUSWWP 07:32
PROVIDERS: ATTEND Obstetrics & Gynecology
DX: N83.02 Follicular cyst of left ovary (principal)
CPT/HCPCS: 76830

== ENCOUNTER → 2022-08-12 | Outpatient (CLI) | payer OTHER, BC ==
[2022-08-12 16:00] LABS: Basophils # (A) 0.04 X 10*3/uL (0.00-0.10); Basophils % (A) 0.6 %; Eosinophils # (A) 0.36 X 10*3/uL (0.04-0.35); Eosinophils % (A) 5.5 %; HCT 40.5 % (37.2-46.3); HGB 12.9 g/dL (12.0-15.0); Immature Grans, Automated 0.5 %; Lymphocytes # (A) 1.97 X 10*3/uL (0.90-5.00); Lymphocytes % (A) 30.1 %; MCH 28.3 pg (27.0-32.0); MCHC 31.9 g/dL (32.0-37.0); MCV 88.8 fL (80.0-97.0); Mean Platelet Volume 9.9 fL (9.5-12.2); Monocytes # (A) 0.49 X 10*3/uL (0.20-1.00); Monocytes % (A) 7.5 %; NRBC Per 100 WBC 0 /100 WBCS (0.0-0.0); Neutrophils # (A) 3.65 X 10*3/uL (1.80-7.70); Neutrophils % (A) 55.8 %; Platelet Count 323 X 10*3/uL (140-440); RBC 4.56 X 10*6/uL (4.10-5.20); RDW 13.1 % (11.5-14.5); WBC 6.54 X 10*3/uL (4.50-10.00)
[2022-08-12 18:16] LABS: ALT 24 U/L (8-44); AST 27 U/L (13-35); African American GFR (CKD) 114.6 (60.0-200.0); Albumin 4.4 g/dL (3.8-4.9); Albumin/Globulin Ratio 1.83 (1.60-3.17); Alkaline Phosphatase 55 U/L (41-126); BUN/Creat Ratio 19.14 Ratio (12.00-20.00); Blood Urea Nitrogen 13.4 mg/dL (9.0-27.0); Calcium 9.6 mg/dL (8.7-10.3); Carbon Dioxide 26.3 mmol/L (20.0-27.5); Chloride 118 mmol/L (96-109); Chol/HDL Ratio 3.19 Ratio; Globulin 2.4 g/dL (1.6-3.3); Glucose 88 mg/dL (70-110); LDL Cholesterol,Calculated 135.9 mg/dL (0.0-131.0); Non-African American GFR(CKD) 98.9 (60.0-200.0); Potassium 4.5 mmol/L (3.5-5.5); Sodium 157 mmol/L (135-145); Total Protein 6.8 g/dL (6.2-8.2); VLDL Calculation 17.24 mg/dL (5.00-40.00)
== END | disposition home or self-care (01) ==
LOC: LABWHC1 08:50
PROVIDERS: ATTEND Family Medicine
DX: Z00.00 Encounter for general adult medical examination without abnormal findings (principal); Z13.1 Encounter for screening for diabetes mellitus; E55.9 Vitamin D deficiency, unspecified
CPT/HCPCS: 36415; 80053; 80061; 82306; 83036; 84439; 84443; 85025

== ENCOUNTER → 2022-12-09 | Outpatient (CLI) | payer OTHER, BC ==
--- NOTE | 2022-12-12 08:39 | MM ---
Reason for Exam: Screening (asymptomatic). Last screening mammogram was performed 12 month(s) ago. Patient History: Menarche at age 9. First Full-Term at age 26. Postmenopausal. Patient has history of breast feeding. Breast cancer, age 48. Hormonal Contraceptives, starting at age 17 for 9 years. 07/17/2019, Lumpectomy on the Right side. 07/17/2019, Malignant Core Biopsy on the right side. 05/23/2019, Malignant Core Biopsy on the right side. 04/12/2012, Benign Cyst Aspiration on the left side. Prior Study Comparison: 10/23/2019 Bilateral Diagnostic Mammogram, [facility]. 12/01/2020 Bilateral Diagnostic Mammogram, [facility]. 12/08/2021 Bilateral Diagnostic Mammogram, [facility]. Tissue Density: The breast tissue is heterogeneously dense. This may lower the sensitivity of mammography. Findings: Analyzed By CAD. There is no suspicious group of microcalcifications or new suspicious mass in either breast. Stable postoperative changes of the right breast. Overall Assessment: Benign, BI-RAD 2 Management: Screening Mammogram of both breasts in 1 year. A clinical breast exam by your physician is recommended on an annual basis and results should be correlated with mammographic findings. Electronically signed and approved by: Marcus Loyola D.O.
== END | disposition home or self-care (01) ==
LOC: RADMAMWWP 09:48
PROVIDERS: ATTEND Internal Medicine Hematology & Oncology
DX: Z12.31 Encounter for screening mammogram for malignant neoplasm of breast (principal); Z78.0 Asymptomatic menopausal state; Z85.3 Personal history of malignant neoplasm of breast
CPT/HCPCS: 77063; 77067

== ENCOUNTER → 2023-06-19 | Outpatient (CLI) | payer BC ==
--- NOTE | 2023-06-19 08:27 | US ---
EXAMINATION TYPE: US transvaginal DATE OF EXAM: 06/19/2023 COMPARISON: 04-18-23 CLINICAL INDICATION: Female, 52 years old with history of N83.202,Z79.810; follow up on prior abnorma l US TECHNIQUE: Transvaginal (TV). Transvaginal sonographic images of the pelvis were acquired. Date of LMP: post menopausal EXAM MEASUREMENTS: Uterus: 7.5 x 4.3 x 5.2 cm Endometrial Stripe: 0.8 cm Right Ovary: 1.5 x 1.6 x 0.9 cm Left Ovary: 2.2 x 1.5 x 1.7 cm 1. Uterus: Retroverted diffusely heterogenous uterine echo pattern, several scattered shadowing echo genic foci, 1.1 cm cystic area within the mid uterine myometrium, 0.9 x 0.8 x 0.8 cm probable fibroid at the mid ut body, 1.3cm well defined probable complex Nabothian cyst within the cervix 2. Endometrium: poor border delineation, appears wnl 3. Right Ovary: wnl 4. Left Ovary: wnl 5. Bilateral Adnexa: wnl 6. Posterior cul-de-sac: no free fluid seen IMPRESSION: 1. Suspected fibrotic change to the uterus including complex nabothian cysts versus leiomyoma within the cervix. Findings could be confirmed with pelvic MRI with and without IV contrast if clinically w arranted. 2. The endometrium is not well appreciated, this could be further evaluated on MRI.
== END | disposition home or self-care (01) ==
LOC: RADUSWWP 07:29
PROVIDERS: ATTEND Obstetrics & Gynecology
DX: N83.202 Unspecified ovarian cyst, left side (principal); Z79.810 Long term (current) use of selective estrogen receptor modulators (SERMs)
CPT/HCPCS: 76830

== ENCOUNTER → 2023-07-28 | Outpatient (CLI) | payer BC ==
[2023-07-28 21:12] LABS: ALT 32 U/L (8-44); AST 39 U/L (13-35); Albumin 4.3 d/dL (3.8-4.9); Albumin/Globulin Ratio 1.72 Ratio (1.60-3.17); Alkaline Phosphatase 60 U/L (41-126); BUN/Creat Ratio 17.14 Ratio (12.00-20.00); Basophils # (A) 0.04 X 10*3/uL (0.00-0.10); Basophils % (A) 0.5 %; Calcium 10.1 mg/dL (8.7-10.3); Carbon Dioxide 25.2 mmol/L (21.6-31.8); Chloride 107 mmol/L (96-109); Eosinophils # (A) 0.26 X 10*3/uL (0.04-0.35); Eosinophils % (A) 3.2 %; Globulin 2.5 d/dL (1.6-3.3); Glucose 83 mg/dL (70-110); HCT 38.1 % (37.2-46.3); HGB 12.9 d/dL (12.0-15.0); LDL Cholesterol,Calculated 117.1 mg/dL (0.0-131.0); Lymphocytes # (A) 2.54 X 10*3/uL (0.90-5.00); Lymphocytes % (A) 31.5 %; MCH 29.3 pg (27.0-32.0); MCHC 33.9 d/dL (32.0-37.0); MCV 86.4 FL (80.0-97.0); Monocytes # (A) 0.56 X 10*3/uL (0.20-1.00); Monocytes % (A) 6.9 %; NRBC Per 100 WBC 0 X 10*3/uL (0.00-0.01); Neutrophils # (A) 4.64 X 10*3/uL (1.80-7.70); Neutrophils % (A) 57.7 %; Platelet Count 315 X 10*3/uL (140-440); Potassium 3.8 mmol/L (3.5-5.5); RBC 4.41 X 10*6/uL (4.10-5.20); RDW 13.2 % (11.5-14.5); Sodium 144 mmol/L (135-145); T4, Free (Free Thyroxine) 0.96 ng/dL (0.80-1.80); Total Bilirubin 0.3 mg/dL (0.3-1.2); Total Protein 6.8 d/dL (6.2-8.2); VLDL Calculation 17.92 mg/dL (5.00-40.00); WBC 8.06 X 10*3/uL (4.50-10.00)
== END | disposition home or self-care (01) ==
LOC: LABWHC1 11:19
PROVIDERS: ATTEND Family Medicine
DX: Z00.00 Encounter for general adult medical examination without abnormal findings (principal); Z13.1 Encounter for screening for diabetes mellitus; E55.9 Vitamin D deficiency, unspecified
CPT/HCPCS: 36415; 80053; 80061; 82306; 83036; 84439; 84443; 85025

== ENCOUNTER → 2023-12-14 | Outpatient (CLI) | payer OTHER, BC ==
--- NOTE | 2023-12-14 10:57 | MM ---
Reason for Exam: Screening (asymptomatic). Last mammogram was performed 1 year(s) and 1 month(s) ago. Patient History: Menarche at age 9. First Full-Term at age 26. Postmenopausal. Patient has history of breast feeding. Breast cancer, right, age 48. Hormonal Contraceptives, starting at age 17 for 9 years. 07/17/2019, Lumpectomy on the Right side. 07/17/2019, Malignant Core Biopsy on the right side. 05/23/2019, Malignant Core Biopsy on the right side. 04/12/2012, Benign Cyst Aspiration on the left side. Prior Study Comparison: 12/01/2020 Bilateral Diagnostic Mammogram, [facility]. 12/08/2021 Bilateral Diagnostic Mammogram, [facility]. 12/09/2022 Bilateral MG 3D screening mammo w/cad, [facility]. Tissue Density: The breast tissue is heterogeneously dense. This may lower the sensitivity of mammography. Findings: Analyzed By CAD. Right upper quadrant surgical clips. Left biopsy clip. There is no suspicious group of microcalcifications or new suspicious mass. Overall Assessment: Benign, BI-RAD 2 Management: Screening Mammogram of both breasts in [address] [facility] will attempt to contact patient to return for supplemental views and ultrasound if indicated. Patient should continue monthly self-breast exams. A clinical breast exam by your physician is recommended on an annual basis. This exam should not preclude additional follow-up of suspicious palpable abnormalities. Note on Augustina scores and lifetime risk: 1. A Augustina score greater than 3% is considered moderate risk. If this is the case, consider specialist referral to assess eligibility for a risk reducing agent. 2. If overall lifetime risk for the development of breast cancer is 20% or higher, the patient may qualify for future screening with alternating mammogram and breast MRI. Electronically signed and approved by: Dorian Obrien DO
== END | disposition home or self-care (01) ==
LOC: RADMAMWWP 08:18
PROVIDERS: ATTEND Surgery
DX: Z12.31 Encounter for screening mammogram for malignant neoplasm of breast (principal)
CPT/HCPCS: 77063; 77067

== ENCOUNTER → 2024-07-12 | Outpatient (CLI) | payer BC ==
--- NOTE | 2024-07-12 12:18 | US ---
EXAMINATION TYPE: US transvaginal DATE OF EXAM: 07/12/2024 COMPARISON: 06/19/2023 CLINICAL INDICATION: Female, 53 years old with history of C50.411 Breast cancer; history of breast ca ncer. patient on tamoxifen for 5 years TECHNIQUE: Transvaginal (TV). Date of LMP: unknown EXAM MEASUREMENTS: Uterus: 7.7 x 4.4 x 5.6 cm Endometrial Stripe: 0.5 cm Right Ovary: 2.0 x 1.4 x 1.0 cm Left Ovary: 1.6 x 0.8 x 1.1 cm 1. Uterus: Retroverted extremely heterogeneous. multiple echogenic foci noted. Nabothian cyst = 1.3 x 0.8 x 1.3cm. possible subtle fibroid mid body = 1.4 x 1.1 x 0.9cm. multiple anechoic areas noted 2. Endometrium: difficult to visualize 3. Right Ovary: appears wnl 4. Left Ovary: appears wnl 5. Bilateral Adnexa: wnl 6. Posterior cul-de-sac: wnl IMPRESSION: 1. Heterogenous uterus with endometrium measuring up to 5 mm which is within normal limits for post consultation. 2. Uterine fibroids. 3. Ovaries appear within normal limits.
== END | disposition home or self-care (01) ==
LOC: RADUSWWP 10:23
PROVIDERS: ATTEND Internal Medicine Hematology & Oncology
DX: C50.411 Malignant neoplasm of upper-outer quadrant of right female breast (principal); Z71.3 Dietary counseling and surveillance; D25.9 Leiomyoma of uterus, unspecified
CPT/HCPCS: 76830

== ENCOUNTER → 2024-08-19 | Outpatient (CLI) | payer BC ==
[2024-08-19 11:18] LABS: Basophils # (A) 0.07 X 10*3/uL (0.00-0.10); Basophils % (A) 0.9 %; Eosinophils # (A) 0.36 X 10*3/uL (0.04-0.35); Eosinophils % (A) 4.7 %; HGB 12.4 g/dL (12.0-15.0); Lymphocytes % (A) 32.4 %; MCH 28.9 pg (27.0-32.0); MCHC 33.5 g/dL (32.0-37.0); MCV 86.2 FL (80.0-97.0); Mean Platelet Volume 9.4 FL (9.5-12.2); Monocytes # (A) 0.64 X 10*3/uL (0.20-1.00); Monocytes % (A) 8.3 %; NRBC Per 100 WBC 0 X 10*3/uL (0.00-0.01); Neutrophils # (A) 4.11 X 10*3/uL (1.80-7.70); Neutrophils % (A) 53.2 %; Platelet Count 341 X 10*3/uL (140-440); RBC 4.29 X 10*6/uL (4.10-5.20); RDW 13.6 % (11.5-14.5); WBC 7.72 X 10*3/uL (4.50-10.00)
[2024-08-19 11:37] LABS: ALT 34 U/L (8-44); AST 32 U/L (13-35); Albumin 3.9 g/dL (3.8-4.9); Albumin/Globulin Ratio 1.56 Ratio (1.60-3.17); Alkaline Phosphatase 74 U/L (41-126); BUN/Creat Ratio 20.57 Ratio (12.00-20.00); Blood Urea Nitrogen 14.4 mg/dL (9.0-27.0); Calcium 9.1 mg/dL (8.7-10.3); Carbon Dioxide 23.6 mmol/L (21.6-31.8); Chloride 106 mmol/L (96-109); Chol/HDL Ratio 3.17 Ratio; Globulin 2.5 g/dL (1.6-3.3); Glucose 91 mg/dL (70-110); LDL Cholesterol,Calculated 119.6 mg/dL (0.0-131.0); Potassium 4.2 mmol/L (3.5-5.5); Sodium 141 mmol/L (135-145); T4, Free (Free Thyroxine) 1.01 ng/dL (0.80-1.80); Total Bilirubin 0.3 mg/dL (0.3-1.2); Total Protein 6.4 g/dL (6.2-8.2)
== END | disposition home or self-care (01) ==
LOC: LABWHC1 07:31
PROVIDERS: ATTEND Family Medicine
DX: Z00.01 Encounter for general adult medical examination with abnormal findings (principal); Z13.1 Encounter for screening for diabetes mellitus
CPT/HCPCS: 36415; 80053; 80061; 83036; 84439; 84443; 85025

== ENCOUNTER → 2024-12-16 | Outpatient (CLI) | payer BC, OTHER ==
--- NOTE | 2024-12-16 08:22 | MM ---
Reason for Exam: Screening (asymptomatic). Last screening mammogram was performed 12 month(s) ago. Patient History: Menarche at age 9. First Full-Term at age 26. Postmenopausal. Patient has history of breast feeding. Breast cancer, right, age 48. Hormonal Contraceptives, starting at age 17 for 9 years. 07/17/2019, Lumpectomy on the Right side. 07/17/2019, Malignant Core Biopsy on the right side. 05/23/2019, Malignant Core Biopsy on the right side. 04/12/2012, Benign Cyst Aspiration on the left side. Prior Study Comparison: 12/08/2021 Bilateral Diagnostic Mammogram, [facility]. 12/09/2022 Bilateral MG 3D screening mammo w/cad, [facility]. 12/14/2023 Bilateral MG 3D screening mammo w/cad, [facility]. Tissue Density: The breasts are heterogeneously dense, which may obscure small masses. Findings: Analyzed By CAD. Posttreatment changes posterior upper outer aspect right breast are redemonstrated. Biopsy clip to posterior left breast redemonstrated. There is no suspicious new group of microcalcifications or new suspicious mass in either breast. Overall Assessment: Benign, BI-RAD 2 Management: Screening Mammogram of both breasts in 1 year. Some advise bilateral breast ultrasound surveillance in patients with background dense tissue. Patient should continue monthly self-breast exams. A clinical breast exam by your physician is recommended on an annual basis. This exam should not preclude additional follow-up of suspicious palpable abnormalities. Note on Augustina scores and lifetime risk: 1. A Augustina score greater than 3% is considered moderate risk. If this is the case, consider specialist referral to assess eligibility for a risk reducing agent. 2. If overall lifetime risk for the development of breast cancer is 20% or higher, the patient may qualify for future screening with alternating mammogram and breast MRI. [facility], , 12/16/2024 8:19 AM. Electronically signed and approved by: Hammad Franz M.D.
== END | disposition home or self-care (01) ==
LOC: RADMAMWWP 07:39
PROVIDERS: ATTEND Surgery
DX: Z12.31 Encounter for screening mammogram for malignant neoplasm of breast (principal); R92.333 Mammographic heterogeneous density, bilateral breasts; Z78.0 Asymptomatic menopausal state; Z85.3 Personal history of malignant neoplasm of breast
CPT/HCPCS: 77063; 77067